=== PATIENT | male | born 1945 | race Caucasian/White ===

== ENCOUNTER 2018-11-24 08:36 | Emergency (ER) | payer MEDICARE, OTHER ==
[2018-11-24] MEDS ORDERED: Doxycycline 100 MG CAP ONE (09:01)
[2018-11-24] MEDS ORDERED: Adacel (T-DAP) 0.5 ML SYRINGE ONE (09:16)
[2018-11-24 09:31] LABS: #Basophils 0.1 thou/uL (0.0-0.2); #Lymphocytes 2.1 thou/uL (1.20-3.40); #Monocytes 0.6 thou/uL (0.11-0.59); #Neutrophils 4.4 thou/uL (1.40-6.50); %Basophils 0.8 % (0.0-1.0); %Lymphocytes 29.1 % (21.0-51.0); %Monocytes 7.9 % (0.0-10.0); %Neutrophils 62.2 % (42.0-75.0); Hemoglobin 14.4 g/dL (14.0-18.0); Mean Corpuscular HGB CONC 32.8 g/dL (32.0-36.0); Mean Corpuscular Hemoglobin 30.3 pg (27.0-31.0); Mean Corpuscular Volume 92.4 fL (78.0-98.0); Mean Platelet Volume 6.2 fL (7.4-10.4); Platelet Count 221 thou/uL (130-400); RBC Distribution Width 12.6 % (11.5-14.5); Red Blood Cell (RBC) Count 4.74 mill/uL (4.70-6.10); White Blood Cell (WBC) Count 7.1 thou/uL (4.8-10.8)
[2018-11-24 09:37] LABS: ALT (SGPT) 38 U/L (8-55); AST (SGOT) 41 U/L (5-34); Albumin 3.6 g/dL (3.4-4.8); Alkaline Phosphatase 88 U/L (40-150); Anion Gap 15 mmol/L (10-20); BUN (Urea Nitrogen) 13 mg/dL (8.4-25.7); Bilirubin, Total 0.5 mg/dL (0.2-1.2); Calc. Creatinine Clearance 0 mL/min (70-130); Calcium 8.2 mg/dL (7.8-10.44); Carbon Dioxide 23 mmol/L (23-31); Chloride 101 mmol/L (98-107); Estimated GFR-MDRD 73; Globulin 3.3 g/dL (2.4-3.5); Glucose 115 mg/dL (83-110); Potassium 3.7 mmol/L (3.5-5.1); Protein, Total 6.9 g/dL (5.8-8.1); Sodium 135 mmol/L (136-145)
[2018-11-28 14:10] LABS: RMSF IgG (EIA) Positive (Negative); RMSF IgM 0.91 index (0.00-0.89)
== END 2018-11-24 09:40 | disposition home or self-care (01) ==
LOC: MADERS 08:36
DX: A77.0 Spotted fever due to Rickettsia rickettsii (principal); F17.210 Nicotine dependence, cigarettes, uncomplicated
CPT/HCPCS: 36415; 80053; 85025; 86757; 90471; 90715